=== PATIENT | female | born 1975 | race Caucasian/White ===

== ENCOUNTER → 2023-08-25 12:02 | Outpatient (REF) | payer OTHER, SELFPAY ==
[2023-08-25 12:46] LABS: % Basophils 0.5 % (0-2); % Eosinophils 0.8 % (0-6); % Immature Granulocytes 0.4 % (0-0.5); % Lymphocytes 20.1 % (20.5-51.1); % Monocytes 7.3 % (1.7-9.3); % Neutrophils 70.9 % (42.2-75.2); Absolute Eosinophils 0.1 10^3/uL (0-0.7); Absolute Lymphocytes 1.6 10^3/uL (1.2-3.4); Absolute Monocytes 0.6 10^3/uL (0.1-0.6); Absolute Neutrophils 5.5 10^3/uL (1.4-6.5); Hematocrit 41.7 % (37.0-47.0); Hemoglobin 14.1 g/dL (12.0-16.0); Mean Corp Hgb Conc. 33.8 g/dL (33.0-37.0); Mean Corpuscular Hgb 30.3 pg (27.0-31.0); Mean Corpuscular Volume 89.5 fL (81.0-99.0); Mean Platelet Volume 11.3 fL (7.4-10.4); Nucleated Red Blood Cells % 0 %; Platelet Count 263 10^3/uL (130-400); Red Blood Cell Count 4.66 10^6/uL (4.20-5.40); Red Cell Dist. Width 13.2 % (11.5-14.5); White Blood Cell Count 7.7 10^3/uL (4.8-10.8)
[2023-08-25 13:34] LABS: ALT (SGPT) 17 U/L (0-35); AST (SGOT) 20 U/L (14-36); Albumin 4.4 g/dl (3.5-5.0); Alkaline Phosphatase 48 U/L (38-126); Blood Urea Nitrogen 20 mg/dl (7-17); Calcium 10.1 mg/dl (8.4-10.2); Carbon Dioxide 24 mmol/L (22-30); Chloride 101 mmol/L (98-107); Glucose 100 mg/dl (70-99); HDL Cholesterol 85 mg/dl; LDL Cholesterol, Calculated 180 mg/dl; Sodium 137 mmol/L (135-145); Total Bilirubin 1.3 mg/dl (0.2-1.3); Total Cholesterol 295 mg/dl (50-199); Total Protein 7.4 g/dl (6.3-8.2); Triglyceride 154 mg/dl (10-149); Very Low Density Lipoprotein 30 mg/dl (0-30); eGFR > 60.00
[2023-08-25 14:03] LABS: TSH Reflex To Free T4 1.76 uIU/ml (0.47-4.68)
== END ==
LOC: REG 12:02
PROVIDERS: ATTENDING PHYSICIAN Internal Medicine
DX: Z00.00 Encounter for general adult medical examination without abnormal findings (principal)
CPT/HCPCS: 36415; 80053; 80061; 84443; 85025

== ENCOUNTER → 2023-09-01 10:34 | Outpatient (REF) | payer OTHER, SELFPAY ==
[2023-09-01 11:38] LABS: Urine Albumin Negative (Neg - Trace); Urine Bilirubin Negative (Negative); Urine Character Clear (Clear); Urine Color Yellow; Urine Glucose Negative (Negative); Urine Ketone Negative (Negative); Urine Leukocyte Negative (Negative); Urine Nitrite Negative (Negative); Urine Occult Blood Trace (Negative); Urine Urobilinogen Negative (Neg - 1+)
[2023-09-01 11:48] LABS: Urine Bacteria Few (Negative); Urine Red Blood Cell 0-2 /HPF (0-2); Urine White Cell 0-2 /HPF (0-5)
[2023-09-01 11:49] LABS: Urine Mucus Moderate
[2023-09-01 11:53] LABS: Free T3 5.02 pg/ml (2.77-5.27); Vitamin D, 25-OH*** 39.5 ng/mL (30-80)
[2023-09-01 12:10] LABS: Ferritin 30.7 ng/ml (6.24-137)
[2023-09-01 12:11] LABS: TSH Reflex To Free T4 1.05 uIU/ml (0.47-4.68)
[2023-09-01 12:13] LABS: Glycohemoglobin (HgbA1c) 5.6 % (4.0-5.6)
[2023-09-01 12:23] LABS: Iron 108 ug/dl (37-170)
[2023-09-01 12:34] LABS: Percent Saturation 33 % (20-50); Total Iron Binding Capacity 324 ug/dl (265-497)
[2023-09-01 13:52] LABS: Vitamin B12 533 pg/ml (239-931)
[2023-09-02 15:06] LABS: Insulin, Random 8 uIU/mL
[2023-09-02 15:34] LABS: Thyroid Peroxidase Ab (TPO) <0.3 IU/mL (0.0-9.0)
[2023-09-02 15:48] LABS: Thyroglobulin 10.7 ng/mL (1.3-31.8); Thyroglobulin Antibodies <0.9 IU/mL (0.0-4.0)
[2023-09-03 05:33] LABS: Homocysteine 7 umol/L (0-15)
== END ==
LOC: REG 10:34
PROVIDERS: ATTENDING PHYSICIAN Internal Medicine
DX: Z00.00 Encounter for general adult medical examination without abnormal findings (principal)
CPT/HCPCS: 36415; 81003; 81015; 82306; 82607; 82728; 82746; 83036; 83090; 83525; 83540; 83550; 84432; 84439; 84443; 84481; 86140; 86376; 86800

== ENCOUNTER → 2023-09-16 11:07 | Outpatient (REF) | payer OTHER, SELFPAY | LOC: RAD 11:07 | PROVIDERS: ATTENDING PHYSICIAN Internal Medicine | DX: I10 Essential (primary) hypertension (principal); R10.11 Right upper quadrant pain | CPT/HCPCS: 76700 ==

== ENCOUNTER → 2023-12-01 16:20 | Outpatient (REF) | payer OTHER, SELFPAY ==
[2023-12-01 17:43] LABS: Microalbumin, Random Urine < 0.6 mg/dl (0.6-1.7)
[2023-12-01 17:59] LABS: Cortisol, Random 7.1 ug/dl
[2023-12-04 09:17] LABS: Aldosterone, Serum 4.1 ng/dL; Aldosterone/Renin Activ Ratio 41.4 ratio (<=25.0); Renin Activity Results 0.1 ng/mL/hr
== END ==
LOC: REG 16:20
PROVIDERS: ATTENDING PHYSICIAN Specialist
DX: I10 Essential (primary) hypertension (principal)
CPT/HCPCS: 36415; 82043; 82088; 82533; 82570; 83835; 84244

== ENCOUNTER → 2024-03-22 09:26 | Outpatient (REF) | payer OTHER, SELFPAY ==
[2024-03-22 11:09] LABS: % Basophils 0.8 % (0-2); % Eosinophils 1.8 % (0-6); % Immature Granulocytes 0.4 % (0-0.5); % Lymphocytes 24.1 % (20.5-51.1); % Monocytes 8.6 % (1.7-9.3); % Neutrophils 64.3 % (42.2-75.2); Absolute Eosinophils 0.1 10^3/uL (0-0.7); Absolute Lymphocytes 1.2 10^3/uL (1.2-3.4); Absolute Monocytes 0.4 10^3/uL (0.1-0.6); Absolute Neutrophils 3.2 10^3/uL (1.4-6.5); Hematocrit 39.9 % (37.0-47.0); Hemoglobin 13.1 g/dL (12.0-16.0); Mean Corp Hgb Conc. 32.8 g/dL (33.0-37.0); Mean Corpuscular Hgb 29.1 pg (27.0-31.0); Mean Corpuscular Volume 88.7 fL (81.0-99.0); Mean Platelet Volume 11.5 fL (7.4-10.4); Nucleated Red Blood Cells % 0 %; Platelet Count 269 10^3/uL (130-400); Red Cell Dist. Width 14.6 % (11.5-14.5)
[2024-03-22 11:45] LABS: Glycohemoglobin (HgbA1c) 5.2 % (4.0-5.6)
[2024-03-22 11:59] LABS: ALT (SGPT) 19 U/L (0-35); AST (SGOT) 20 U/L (14-36); Albumin 4.5 g/dl (3.5-5.0); Alkaline Phosphatase 57 U/L (38-126); Blood Urea Nitrogen 17 mg/dl (7-17); Carbon Dioxide 23 mmol/L (22-30); Chloride 104 mmol/L (98-107); Glucose 94 mg/dl (70-99); HDL Cholesterol 74 mg/dl; LDL Cholesterol, Calculated 155 mg/dl; Sodium 142 mmol/L (135-145); Total Bilirubin 1.1 mg/dl (0.2-1.3); Total Cholesterol 254 mg/dl (50-199); Total Protein 7.1 g/dl (6.3-8.2); Triglyceride 128 mg/dl (10-149); Very Low Density Lipoprotein 25 mg/dl (0-30); eGFR > 60.00
[2024-03-22 12:15] LABS: TSH Reflex To Free T4 1.38 uIU/ml (0.47-4.68)
== END ==
LOC: REG 09:26
PROVIDERS: ATTENDING PHYSICIAN Internal Medicine
DX: I10 Essential (primary) hypertension (principal); E78.2 Mixed hyperlipidemia; R73.01 Impaired fasting glucose
CPT/HCPCS: 36415; 80053; 80061; 83036; 84443; 85025

== ENCOUNTER → 2025-02-18 09:53 | Outpatient (REF) | payer OTHER, SELFPAY ==
[2025-02-18 18:52] LABS: FSH 35.5 mIU/ml
== END ==
LOC: REG 09:53
PROVIDERS: ATTENDING PHYSICIAN Obstetrics & Gynecology Gynecology; FAMILY PHYSICIAN Internal Medicine
DX: Z01.419 Encounter for gynecological examination (general) (routine) without abnormal findings (principal)
CPT/HCPCS: 36415; 83001; 83002